=== PATIENT | female | born 1995 | race Caucasian/White ===

== ENCOUNTER → 2020-08-25 | Outpatient (CLI) | payer OTHER ==
[~2020-08-25] MED LIST: ETHA400T8 PO; INHALER IH; ISON100 PO; PYRA500 PO; PYRI50TA15 PO; RIFA150 PO
== END | disposition home or self-care (01) ==
LOC: RADPV 11:25
PROVIDERS: ATTEND Internal Medicine
DX: R91.8 Other nonspecific abnormal finding of lung field (principal); R76.11 Nonspecific reaction to tuberculin skin test without active tuberculosis
CPT/HCPCS: 71045-TC